=== PATIENT | male | born 1950 | race Hispanic/Latino ===

== ENCOUNTER 2018-06-13 08:55 | Inpatient (IN) | payer MEDICARE, OTHER, SELFPAY ==
[~2018-06-13] VITALS: Ht 170.2 cm; Wt 81.2 kg
[2018-06-13] MEDS ORDERED: oxyCODONE HCL/Acetaminophen 5/325mg ORAL ONE (09:00)
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
[2018-06-13 09:07] VITALS: BP 162/92
--- NOTE | 2018-06-13 09:08 | NUR ---
ED Nurse Note: XRAY AT BEDSIDE.
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
--- NOTE | 2018-06-13 09:20 | NUR ---
ED Nurse Note: [employer] AT BEDSIDE.
--- NOTE | 2018-06-13 09:45 | NUR ---
ED Nurse Note: DR BARNHART AT BEDSIDE FOR ANKLE REDUCTION. PT TOLERATED WELL.
[2018-06-13] MEDS ORDERED: Tetanus/Diptheria/Pertussis IM ONE (10:00)
--- NOTE | 2018-06-13 10:05 | NUR ---
ED Nurse Note: XRAY AT BEDSIDE.
--- NOTE | 2018-06-13 10:59 | Diagnostic Imaging Report ---
Indication: Ankle pain, post reduction Technique: 2 views of the right ankle Comparison: One hour earlier Findings: Overlying plaster splint obscures bony detail. Interim closed reduction of previously demonstrated ankle fracture/subluxation. There is improved anatomic alignment, still some lateral subluxation of the talus and slight angulation of the distal fibular fracture. Impression: Interim closed reduction and splinting of previously demonstrated right ankle/subluxation, with improved anatomic alignment, as described
--- NOTE | 2018-06-13 11:00 | NUR ---
ED Nurse Note: XRAY AT BEDSIDE.
--- NOTE | 2018-06-13 11:15 | NUR ---
ED Nurse Note: BLOOD DRAWN AND SENT TO LAB.
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
[2018-06-13 11:36] LABS: ANION GAP 7 mmol/L (5-15); BLOOD UREA NITROGEN 13 mg/dL (7-18); CALCIUM 8.4 MG/DL (8.5-10.1); CARBON DIOXIDE 31 MMOL/L (21-32); CHLORIDE 101 MMOL/L (98-107); POTASSIUM 4.5 MMOL/L (3.5-5.1); SODIUM 139 MMOL/L (136-145)
[2018-06-13 11:38] LABS: BASOPHILS % (AUTO) 0.9 % (0.0-2.0); EOSINOPHILS % (AUTO) 1.7 % (0.0-3.0); HEMATOCRIT 40.9 % (42.0-52.0); HEMOGLOBIN 13.1 G/DL (14.2-18.0); LYMPHOCYTES % (AUTO) 20.9 % (20.0-45.0); MEAN CORPUSCULAR VOLUME 85 FL (80-99); NEUTROPHILS % (AUTO) 70.5 % (45.0-75.0); PLATELET COUNT 177 K/UL (150-450); RED BLOOD COUNT 4.84 M/UL (4.70-6.10); RED CELL DISTRIBUTION WIDTH 13.5 % (11.6-14.8)
[2018-06-13 11:40] LABS: ALANINE AMINOTRANSFERASE 21 U/L (12-78); ALBUMIN 3.6 G/DL (3.4-5.0); ALBUMIN/GLOBULIN RATIO 1.1 (1.0-2.7); ALKALINE PHOSPHATASE 92 U/L (46-116); ASPARTATE AMINO TRANSFERASE 16 U/L (15-37); BILIRUBIN,TOTAL 0.4 MG/DL (0.2-1.0)
--- NOTE | 2018-06-13 11:52 | NUR ---
ED Nurse Note: [facility] CALLED FOR PT TRANSFER. RN ON BREAK. WILL CALL BACK IN 15 MINUTES.
[2018-06-13 11:59] LABS: INR 1.1 (0.9-1.1)
--- NOTE | 2018-06-13 12:00 | NUR ---
ED Nurse Note: RN STILL NOT READY. WILL CALL BACK IN 5 MINUTES.
--- NOTE | 2018-06-13 12:10 | Diagnostic Imaging Report ---
Indication: Cough Technique: One view of the chest Comparison: none Findings: Heart is enlarged. Lungs and pleural spaces are clear. Impression: Cardiomegaly. No acute process
[2018-06-13] MEDS ORDERED: UNOBMED (12:11)
--- NOTE | 2018-06-13 12:11 | NUR ---
ED Nurse Note: [facility] CALLED FOR PT TRANSFER. REPORT GIVEN TO CARLYN RUBIN. PT TAKEN UP TO [facility] VIA GURNEY WITH ALL BELONGINGS ACCOMPANIED BY EMT. VSS.
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
--- NOTE | 2018-06-13 12:35 | NUR ---
RADIOLOGY DEPT., CHEST , RIGHT FOOT AND ANKLE X-RAYS COMPLETED ON ADMIT FROM ER.-P.DYE
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
[2018-06-13] MEDS ORDERED: Morphine Sulfate 4mg/ml Inj (IV USE ONLY) IVP PRN (15:00)
--- NOTE | 2018-06-13 15:15 | History & Physical ---
History and Physical History & Physicial HP dictated # [id number] Adriano Rodrigez MD Jun 13, 2018 15:15
[2018-06-13 16:00] VITALS: BP 162/98
[2018-06-13] MEDS: NovoLOG Insulin Flexpen SUBQ SCH ×2 (16:13→21:11)
[2018-06-13] MEDS: Heparin 5000 units/ml inj SUBQ SCH ×2 (16:15→21:10)
[2018-06-13] MEDS ORDERED: METFORMIN HCL500 M1 ORAL (18:18)
[2018-06-13] MEDS ORDERED: ARTIFICIAL TEAR15 ML BOTH EYES (18:18)
[2018-06-13] MEDS ORDERED: ATENOLOL50 MG ORAL (18:18)
[2018-06-13] MEDS ORDERED: LIPITOR10 MG ORAL (18:18)
[2018-06-13] MEDS ORDERED: LISINOPRIL5 MG ORAL (18:18)
--- NOTE | 2018-06-13 19:12 | NUR ---
HAND-OFF: Report given to CARLYN Piedra.
--- NOTE | 2018-06-13 19:26 | NUR ---
NURSE NOTES: Pt is awake, alert and oriented x4. Able to verbalize needs. Breathing regular and unlabored on room air. Denies current ankle pain at this time. Spoke with physician who said to have pt elevate r leg/ankle above the level of the heart. IV intact, patent and flushes well, right AC 20g. Bed is locked in lowest position, side rails x2. Asked pt to call for assistanc e and call light within reach. Multiple family members at bedside with patient. Will continue to monitor needs and pain.
[2018-06-13 20:00] VITALS: BP 134/79
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
--- NOTE | 2018-06-13 20:06 | Cardiology Progress Note ---
Assessment/Plan Assessment/Plan no sign or sx oa cs of chf dm htn need echo adn ekg if neg will be at acceptable risk fo ankle surgery [id number] Objective Last 24 Hour Vital Signs Date Time Temp Pulse Resp B/P (MAP) Pulse Ox O2 Delivery O2 Flow Rate FiO2 06/13/18 17:35 162/98 06/13/18 16:00 98.6 83 20 162/98 (119) 95 06/13/18 13:00 Room Air 06/13/18 12:11 98.5 62 14 142/80 99 Room Air 06/13/18 09:07 98.8 67 15 162/92 98 Room Air 06/13/18 08:56 99.0 72 14 177/100 99 Room Air Laboratory Tests Test 06/13/18 11:13 White Blood Count 5.0 K/UL (4.8-10.8) Red Blood Count 4.84 M/UL (4.70-6.10) Hemoglobin 13.1 G/DL (14.2-18.0) L Hematocrit 40.9 % (42.0-52.0) L Mean Corpuscular Volume 85 FL (80-99) Mean Corpuscular Hemoglobin 27.1 PG (27.0-31.0) Mean Corpuscular Hemoglobin Concent 32.0 G/DL (32.0-36.0) Red Cell Distribution Width 13.5 % (11.6-14.8) Platelet Count 177 K/UL (150-450) Mean Platelet Volume 6.9 FL (6.5-10.1) Neutrophils (%) (Auto) 70.5 % (45.0-75.0) Lymphocytes (%) (Auto) 20.9 % (20.0-45.0) Monocytes (%) (Auto) 6.0 % (1.0-10.0) Eosinophils (%) (Auto) 1.7 % (0.0-3.0) Basophils (%) (Auto) 0.9 % (0.0-2.0) Prothrombin Time 11.7 SEC (9.30-11.50) H Prothromb Time International Ratio 1.1 (0.9-1.1) Activated Partial Thromboplast Time 27 SEC (23-33) Sodium Level 139 MMOL/L (136-145) Potassium Level 4.5 MMOL/L (3.5-5.1) Chloride Level 101 MMOL/L (98-107) Carbon Dioxide Level 31 MMOL/L (21-32) Anion Gap 7 mmol/L (5-15) Blood Urea Nitrogen 13 mg/dL (7-18) Creatinine 1.0 MG/DL (0.55-1.30) Estimat Glomerular Filtration Rate > 60 mL/min (>60) Glucose Level 139 MG/DL (74-106) H Calcium Level 8.4 MG/DL (8.5-10.1) L Total Bilirubin 0.4 MG/DL (0.2-1.0) Aspartate Amino Transf (AST/SGOT) 16 U/L (15-37) Alanine Aminotransferase (ALT/SGPT) 21 U/L (12-78) Alkaline Phosphatase 92 U/L (46-116) Total Protein 6.8 G/DL (6.4-8.2) Albumin 3.6 G/DL (3.4-5.0) Globulin 3.2 g/dL Albumin/Globulin Ratio 1.1 (1.0-2.7) Vlad Neri MD Jun 13, 2018 20:06
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
[2018-06-13] MEDS: Morphine Sulfate 2mg/ml Inj(IV/IM USE ONLY) IVP PRN (23:44)
[2018-06-14] VITALS (7 sets, daily range): BP systolic 122–156; BP diastolic 70–98
--- NOTE | 2018-06-14 | Consultation ---
DATE OF CONSULTATION: 06/13/2018 HISTORY OF PRESENT ILLNESS: This is a pleasant 68-year-old gentleman who is a had a deformity of the right ankle. He presented to the ER where he was diagnosed with ankle fracture. Orthopedic consultation obtained for further care and recommendation. PAST MEDICAL HISTORY: Hypertension, diabetes. PAST SURGICAL HISTORY: Per intake chart. MEDICATION: Per intake chart. ALLERGIES: None. SOCIAL HISTORY: The patient does not smoke or drink. FAMILY HISTORY: Noncontributory. PHYSICAL EXAMINATION: The patient is in moderate discomfort. He is resting comfortably in bed. VITAL SIGNS: Afebrile with stable vital signs. EXTREMITIES: Right ankle is in a posterior splint. DIAGNOSTIC DATA: Imaging study show pronation external rotation fracture. There is disruption of the syndesmosis. ASSESSMENT: Right ankle fracture dislocation syndesmosis. At this point, what I recommend is postreduction films seem adequate. At this point, given the nature of the injury, I would recommend strict elevation above heart for the next 48 hours. Hopefully the swelling continues to improve at which point we will proceed with surgery on Saturday if he is medically optimized. Risks, limitations, expectations, complications of procedure were discussed in detail. All questions addressed. Oliver Juarez M.D. DR: Richard JOB#: [id number] CC:
[2018-06-14] MEDS: NovoLOG Insulin Flexpen SUBQ SCH ×4 (05:44→20:08)
--- NOTE | 2018-06-14 07:43 | NUR ---
HAND-OFF: Report given to CARLYN Jacobs.
--- NOTE | 2018-06-14 07:50 | NUR ---
NURSE NOTES: Received patient on bed, asleep. IV site intact and patent. Bed in low and locked position, call light in reach. Foot elevated. No signs of respiratory distress or pain. Room board updated, will continue to monitor.
[2018-06-14 08:01] LABS: ALANINE AMINOTRANSFERASE 22 U/L (12-78); ALBUMIN 3.4 G/DL (3.4-5.0); ALKALINE PHOSPHATASE 92 U/L (46-116); ANION GAP 9 mmol/L (5-15); ASPARTATE AMINO TRANSFERASE 16 U/L (15-37); BILIRUBIN,TOTAL 0.6 MG/DL (0.2-1.0); BLOOD UREA NITROGEN 15 mg/dL (7-18); CALCIUM 8.2 MG/DL (8.5-10.1); CARBON DIOXIDE 29 MMOL/L (21-32); CHLORIDE 100 MMOL/L (98-107); CHOLESTEROL 108 MG/DL (< 200); CREATININE 0.9 MG/DL (0.55-1.30); HDL CHOLESTEROL 30 MG/DL (40-60); POTASSIUM 4.1 MMOL/L (3.5-5.1); SODIUM 138 MMOL/L (136-145); TRIGLYCERIDES 129 MG/DL (30-150)
[2018-06-14] MEDS ORDERED: Lisinopril 2.5mg tab ORAL SCH ×2 (09:00→18:00)
[2018-06-14] MEDS: Artificial Tears 1.4% Op Soln BOTH EYES SCH ×3 (10:06→17:50)
[2018-06-14] MEDS: metFORMIN 500mg tab ORAL SCH ×2 (10:06→17:50)
[2018-06-14] MEDS: Heparin 5000 units/ml inj SUBQ SCH ×2 (10:08→20:09)
--- NOTE | 2018-06-14 11:53 | NUR ---
NURSE NOTES: Patient refused bedside glucose check. Risk versus benefits explained. Patient refused.
[2018-06-14] MEDS: Morphine Sulfate 2mg/ml Inj(IV/IM USE ONLY) IVP PRN (15:49)
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
[2018-06-14] MEDS: Lisinopril 20mg tab ORAL SCH (17:50)
--- NOTE | 2018-06-14 18:30 | General Progress Note ---
Assessment/Plan Problem List: (1) DM (diabetes mellitus) ICD Codes: E11.9 - Type 2 diabetes mellitus without complications SNOMED: 44636710 (2) HTN (hypertension) ICD Codes: I10 - Essential (primary) hypertension SNOMED: 42388704 (3) Closed right ankle fracture ICD Codes: S82.891A - Other fracture of right lower leg, initial encounter for closed fracture SNOMED: 21361859 Assessment/Plan Increase Lisinopril Add Januvia Surgery on Saturday Discussed with pt and family Subjective Allergies: Coded Allergies: No Known Allergies (Unverified , 06/13/18) Subjective feels ok Objective Last 24 Hour Vital Signs Date Time Temp Pulse Resp B/P (MAP) Pulse Ox O2 Delivery O2 Flow Rate FiO2 06/14/18 17:50 122/70 06/14/18 16:00 98.1 64 20 122/70 (87) 96 06/14/18 12:00 99.1 66 19 156/95 (115) 95 06/14/18 10:06 144/88 06/14/18 10:06 78 144/88 06/14/18 09:00 Room Air 06/14/18 08:00 97.2 78 17 144/88 (106) 96 06/14/18 04:00 97.9 62 17 138/98 (111) 93 06/14/18 00:00 97.7 61 19 156/92 (113) 95 06/13/18 21:00 Room Air 06/13/18 20:00 98.4 69 20 134/79 (97) 95 Intake and Output 06/13/18 06/14/18 19:00 07:00 Intake Total 720 ml Output Total 600 ml 975 ml Balance 120 ml -975 ml Intake Oral 720 ml Output Urine Total 600 ml 975 ml # Voids 1 Laboratory Tests 06/14/18 06:47: Sodium Level 138, Potassium Level 4.1, Chloride Level 100, Carbon Dioxide Level 29, Anion Gap 9, Blood Urea Nitrogen 15, Creatinine 0.9, Estimat Glomerular Filtration Rate > 60, Glucose Level 109H, Hemoglobin A1c 6.8H, Calcium Level 8.2L, Total Bilirubin 0.6, Aspartate Amino Transf (AST/SGOT) 16, Alanine Aminotransferase (ALT/SGPT) 22, Alkaline Phosphatase 92, Total Protein 6.7, Albumin 3.4, Globulin 3.3, Albumin/Globulin Ratio 1.0, Triglycerides Level 129, Cholesterol Level 108, LDL Cholesterol 62, HDL Cholesterol 30L, Cholesterol/HDL Ratio 3.6 Height (Feet): 5 Height (Inches): 7.00 Weight (Pounds): 180 Cardiovascular: normal rate Respiratory/Chest: lungs clear Edema: no edema noted Generalized Adriano Rodrigez MD Jun 14, 2018 18:29
--- NOTE | 2018-06-14 19:29 | NUR ---
HAND-OFF: Report given to CARLYN Mcnally.
--- NOTE | 2018-06-14 19:30 | NUR ---
NURSE NOTES: Patient received in bed, awake and alert. Right lower extremity with CHRISTINE bandage, elevated on 2 pillows. IV is intact. Seen by Dr. Juarez at bedside. Verified with Dr. Juarez regarding NPO status on Saturday after breakfast and hold heparin startng saturday night. Call light and urinal within reach for patient. Will continue POC.
--- NOTE | 2018-06-15 03:00 | Progress Note ---
DATE: 06/14/2018 SUBJECTIVE: The patient had no issues overnight, doing relatively well. OBJECTIVE: Examination shows the splint in place. The patient's ankle was elevated. Neurovascular is normal. ASSESSMENT: Ankle fracture dislocation. DISCUSSION: At this point, there is moderate swelling. What I would like to do is continue elevation and then proceed with surgery potentially Saturday. Risks, limitations, expectations, and complications of the procedure discussed in detail. All questions were addressed. We are going to keep continued elevation and ice and pain management in the meantime. Oliver Juarez M.D. DR: SINDY JOB#: [id number] CC:
[2018-06-15 03:41] VITALS: BP 149/91
[2018-06-15] MEDS: sitaGLIPtin 50mg tab ORAL SCH (06:11)
[2018-06-15] MEDS: NovoLOG Insulin Flexpen SUBQ SCH ×4 (06:16→20:23)
--- NOTE | 2018-06-15 07:18 | NUR ---
HAND-OFF: Report given to Reynaldo ALCOCER.
--- NOTE | 2018-06-15 07:55 | NUR ---
NURSE NOTES: Received patient on bed, awake. IV access intact and patent. Right ankle in sherlyn wrap and elevated. Bed in low an dlocked position, call light in reach. No signs of respiratory distress or pain. Room board updated, will continue to monitor.
[2018-06-15 08:00] VITALS: BP 134/87
[2018-06-15] MEDS: Artificial Tears 1.4% Op Soln BOTH EYES SCH ×3 (09:39→17:08)
[2018-06-15] MEDS: metFORMIN 500mg tab ORAL SCH ×2 (09:40→17:07)
[2018-06-15] MEDS: Lisinopril 20mg tab ORAL SCH ×2 (09:40→17:08)
[2018-06-15] MEDS: Heparin 5000 units/ml inj SUBQ SCH ×2 (09:41→20:18)
[2018-06-15 12:00] VITALS: BP 146/89
--- NOTE | 2018-06-15 15:13 | Cardiology Progress Note ---
Assessment/Plan Status: stable, progressing Status Narrative s/p R ankle fracture - preop HTN HLD type II DM Assessment/Plan Pt w/ no cardiac c/o. EKG normal. ECHO shows normal LV systolic function and no significant valve regurgitation or stenosis. BP borderline - lisinopril has been increased. Acceptable cv risk for planned orthopedic surgery. Subjective ROS Limited/Unobtainable: No Subjective Cardiology for Dr. Neri No c/o chest pain, dyspnea or palpitations Objective Last 24 Hour Vital Signs Date Time Temp Pulse Resp B/P (MAP) Pulse Ox O2 Delivery O2 Flow Rate FiO2 06/15/18 12:00 97.1 65 16 146/89 (108) 95 06/15/18 09:40 134/87 06/15/18 09:40 95 134/87 06/15/18 09:00 Room Air 06/15/18 08:00 98.7 95 18 134/87 (103) 94 06/15/18 03:41 97.7 61 17 149/91 (110) 92 06/14/18 23:52 97.8 69 18 140/88 (105) 96 06/14/18 21:00 Room Air 06/14/18 19:53 98.1 68 18 132/78 (96) 94 06/14/18 17:50 122/70 06/14/18 16:00 98.1 64 20 122/70 (87) 96 General Appearance: WD/WN, no apparent distress, alert EENT: PERRL/EOMI Neck: no JVD Rhythm: NSR Cardiovascular: normal rate, regular rhythm, no gallop/murmur Respiratory/Chest: lungs clear, other - clear anteriorly Abdomen: non tender, soft Extremities: other - R ankle cast Intake and Output 06/14/18 06/15/18 18:59 06:59 Intake Total 600 ml Output Total 600 ml 775 ml Balance 0 ml -775 ml Intake Oral 600 ml Output Urine Total 600 ml 775 ml Kelsea Taylor MD Jun 15, 2018 15:13
[2018-06-15 16:00] VITALS: BP 158/98
--- NOTE | 2018-06-15 16:07 | General Progress Note ---
Assessment/Plan Problem List: (1) DM (diabetes mellitus) ICD Codes: E11.9 - Type 2 diabetes mellitus without complications SNOMED: 66061248 (2) HTN (hypertension) ICD Codes: I10 - Essential (primary) hypertension SNOMED: 49511371 (3) Closed right ankle fracture ICD Codes: S82.891A - Other fracture of right lower leg, initial encounter for closed fracture SNOMED: 52120040 Assessment/Plan Increase Lisinopril cont Januvia Surgery on Saturday Discussed with pt and family Subjective Allergies: Coded Allergies: No Known Allergies (Unverified , 06/13/18) Subjective feels ok Objective Last 24 Hour Vital Signs Date Time Temp Pulse Resp B/P (MAP) Pulse Ox O2 Delivery O2 Flow Rate FiO2 06/15/18 12:00 97.1 65 16 146/89 (108) 95 06/15/18 09:40 134/87 06/15/18 09:40 95 134/87 06/15/18 09:00 Room Air 06/15/18 08:00 98.7 95 18 134/87 (103) 94 06/15/18 03:41 97.7 61 17 149/91 (110) 92 06/14/18 23:52 97.8 69 18 140/88 (105) 96 06/14/18 21:00 Room Air 06/14/18 19:53 98.1 68 18 132/78 (96) 94 06/14/18 17:50 122/70 Intake and Output 06/14/18 06/15/18 18:59 06:59 Intake Total 600 ml Output Total 600 ml 775 ml Balance 0 ml -775 ml Intake Oral 600 ml Output Urine Total 600 ml 775 ml Height (Feet): 5 Height (Inches): 7.00 Weight (Pounds): 180 Cardiovascular: regular rhythm Respiratory/Chest: lungs clear Abdomen: non tender Edema: no edema noted Generalized Adriano Rodrigez MD Jun 15, 2018 16:07
--- NOTE | 2018-06-15 19:36 | NUR ---
HAND-OFF: Report given to CARLYN Mcnally.
[2018-06-15 20:00] VITALS: BP 141/84
--- NOTE | 2018-06-15 20:00 | NUR ---
NURSE NOTES: Patient received in bed, awake and alert, Family is at bedside. IV already out, new IV access obtained. C/o mild pain at this time. R leg elevated on two pillows. aware of surgery tomorrow and NPO status after breakfast. Urinal and call light within reach. Will continue to monitor.
[2018-06-15] MEDS: Morphine Sulfate 2mg/ml Inj(IV/IM USE ONLY) IVP PRN (20:51)
--- NOTE | 2018-06-15 22:15 | Progress Note ---
DATE: 06/15/2018 SUBJECTIVE: The patient had no issues overnight. He has pain, which is well controlled on oral medications. OBJECTIVE: Examination shows right foot is in a coaptation splint. It is elevated. The patient on his toes. Neurovascular is normal. ASSESSMENT: Right ankle fracture dislocation. DISCUSSION: At this point, he elevated the extremity for approximately 48 hours. We are going to proceed with surgery tomorrow. Risks, limitations, expectations, and complications of procedure were discussed in detail. He will be NPO after surgery tomorrow late afternoon. Oliver Juarez M.D. DR: Mirela JOB#: [id number] CC: SRIDHAR
[2018-06-16] VITALS (10 sets, daily range): BP systolic 113–153; BP diastolic 62–94
[2018-06-16] MEDS: sitaGLIPtin 50mg tab ORAL SCH (05:33)
[2018-06-16] MEDS: NovoLOG Insulin Flexpen SUBQ SCH ×4 (06:07→23:40)
--- NOTE | 2018-06-16 07:18 | NUR ---
HAND-OFF: Report given to Cici ALCOCER.
--- NOTE | 2018-06-16 07:20 | NUR ---
NURSE NOTES:RECEIVED REPORT FR.XYRECE ALCOCER.PATIENT EATING BREAKFAST,A/OX4,ROOM AIR,IV SITE PATENT ON RFA.RIGHT ANKLE WITH SPLINT ON,CAN WIGGLE TOES,ELEVATED ON PILLOW.NPO AFTER BREAKFAST,SCHEDULE FOR SURGERY AT 5PM UNDER .CONSENTED FOR PROCEDURE AND BLOOD TRANSFUSION.PLAN OF CARE DISCUSSED VERBALIZED UNDERSTANDING.NO C/O PAIN.
[2018-06-16] MEDS: metFORMIN 500mg tab ORAL SCH ×2 (08:24→16:48)
[2018-06-16] MEDS: Lisinopril 20mg tab ORAL SCH ×2 (08:25→17:26)
[2018-06-16] MEDS: Heparin 5000 units/ml inj SUBQ SCH ×2 (08:26→21:00)
[2018-06-16] MEDS: Artificial Tears 1.4% Op Soln BOTH EYES SCH ×3 (08:30→17:26)
--- NOTE | 2018-06-16 09:11 | NUR ---
NURSE NOTES:SPOKE TO DR. TIPTON RE:PATIENT NPO AND SURGERY AT 5 PM AND NEEDS IV FLUID,MD ORDERED D5.45NS INSPITE OF TELLING HIM THAT HE IS DIABETIC.MD STATED"IT DOESNT MATTER"
[2018-06-16] MEDS: D5 1/2NS 1,000 ML IV SCH ×3 (10:02→23:27)
--- NOTE | 2018-06-16 13:14 | General Progress Note ---
Assessment/Plan Problem List: (1) DM (diabetes mellitus) Assessment & Plan: Blood sugar is better controlled ICD Codes: E11.9 - Type 2 diabetes mellitus without complications SNOMED: 15883349 (2) HTN (hypertension) Assessment & Plan: Blood pressure still slightly high ICD Codes: I10 - Essential (primary) hypertension SNOMED: 42597460 (3) Closed right ankle fracture ICD Codes: S82.891A - Other fracture of right lower leg, initial encounter for closed fracture SNOMED: 53878664 Assessment/Plan Continue lisinopril cont Januvia Ankle surgery today Discussed with pt and family Watch blood sugar and blood pressure Subjective Allergies: Coded Allergies: No Known Allergies (Unverified , 06/13/18) Subjective feels ok Objective Last 24 Hour Vital Signs Date Time Temp Pulse Resp B/P (MAP) Pulse Ox O2 Delivery O2 Flow Rate FiO2 06/16/18 12:00 98.1 61 18 153/84 (107) 94 06/16/18 08:25 144/89 06/16/18 08:25 80 144/89 06/16/18 08:00 98.7 80 17 144/89 (107) 94 06/16/18 07:39 Room Air 06/16/18 04:00 97.4 69 18 149/94 (112) 94 06/16/18 00:05 98.6 65 18 135/83 (100) 95 06/15/18 21:00 Room Air 06/15/18 20:00 98.5 74 18 141/84 (103) 98 06/15/18 17:08 158/95 06/15/18 16:00 99.4 63 18 158/98 (118) 97 Intake and Output 06/15/18 06/16/18 19:00 07:00 Intake Total 800 ml Output Total 600 ml Balance 800 ml -600 ml Other 800 ml Output Urine Total 600 ml Height (Feet): 5 Height (Inches): 7.00 Weight (Pounds): 180 Cardiovascular: normal rate Respiratory/Chest: lungs clear Edema: no edema noted Generalized Adriano Rodrigez MD Jun 16, 2018 13:14
--- NOTE | 2018-06-16 16:25 | NUR ---
HAND-OFF: Report given to NAM ALCOCER.RE:CONTINUITY OF CARE.PATIENT STABLE AWAITING FOR SURGERY ASSOCIATE PROFESSOR OF GEOLOGY..
[2018-06-16] MEDS ORDERED: NeoSporin Gu Irrig 1ml Amp IRRIG ONE (16:38)
[2018-06-16] MEDS ORDERED: Bacitracin 50000 Units Vial ONE (16:38)
--- NOTE | 2018-06-16 16:52 | NUR ---
nurse notes received patient resting comfortably in bed, no sign of distress, on IVF patent and infusing well,on NPO status for procedure, right ankle with splint dressing clean dry and intact, elevated on pillow, , kept clean dry and comfortable in bed tabitha gómez
[2018-06-16] MEDS: Morphine Sulfate 2mg/ml Inj(IV/IM USE ONLY) IVP PRN (18:31)
[2018-06-16] MEDS ORDERED: NS Irrig 1000ml ONE (19:00)
[2018-06-16] MEDS ORDERED: Sterile Water Irrig 1000ml IRRIG ONE (19:00)
[2018-06-16] MEDS ORDERED: LR 1000ml ONE (19:00)
--- NOTE | 2018-06-16 19:00 | NUR ---
HAND-OFF: Report given to CARLYN Padilla accordingly carlyn gómez.
--- NOTE | 2018-06-16 19:03 | Cardiology Report ---
APPROVED REPORT EXAM: Two-dimensional and M-mode echocardiogram with Doppler and color Doppler. INDICATION Hypertension M-Mode DIMENSIONS IVSd1.3 (0.7-1.1cm)Left Atrium (MM)3.8 (1.6-4.0cm) LVDd5.1 (3.5-5.6cm)Aortic Root3.2 (2.0-3.7cm) PWd1.2 (0.7-1.1cm)Aortic Cusp Exc.1.7 (1.5-2.0cm) LVDs2.5 (2.5-4.0cm) PWs2.2 cm Normal left ventricular chamber size, systolic function and wall motion. Left ventricular ejection fraction estimated to be 60-65 %. Mild left ventricular hypertrophy. Anterior Echo-free space, may be due to pericardial fat or effusion. All other cardiac chamber sizes are within normal limits. Focal aortic valve sclerosis with adequate cusp excursion. Thickened mitral valve leaflets with normal excursion. Mild mitral annulus and aortic root calcification. Pulmonic valve not visualized. Normal tricuspid valve structure. IVC is normal in size with physiological collapse. A color flow and spectral Doppler study was performed and revealed: No aortic insufficiency. Mild mitral regurgitation. Mitral diastolic velocities suggest mild left ventricular diastolic dysfunction (Grade I). Trace tricuspid regurgitation. Tricuspid systolic velocities suggests peak right ventricular systolic pressure of 13 mmHg.
[2018-06-16] MEDS ORDERED: Morphine Sulfate PF 10 ML ONE (19:05)
[2018-06-16] MEDS ORDERED: Bupivacaine 0.5% Inj 30 ml vial INJ ONE (19:05)
[2018-06-16] MEDS ORDERED: EPINEPHrine 1mg/1ml Amp ONE (19:09)
[2018-06-16] MEDS ORDERED: Lidocaine 1% MPF 10mg/ml 5ml ONE (19:13)
[2018-06-16] MEDS ORDERED: Propofol 200mg/20ml IV ONE (19:13)
--- NOTE | 2018-06-16 19:15 | Operative Note - PDOC ---
Operative Note Operative Note Pre-op Diagnosis: right ankle fracture dislocation Procedure: see op report Post-op Diagnosis: same as pre-op plus Operative Findings: consistent w/pre-op dx studies Anesthesia: regional Specimen: none Complications: none Condition: stable Estimated Blood Loss: none Implant(s) used?: Yes Oliver Juarez MD Jun 16, 2018 19:15
--- NOTE | 2018-06-16 19:15 | Pre-Procedure Note/Attestation ---
Pre-Procedure Note/Attestation Complete Prior to Procedure Planned Procedure: right Procedure Narrative: ankle orif Indications for Procedure Pre-Operative Diagnosis: right ankle fracture dislocation Attestation I attest that I discussed the nature of the procedure; its benefits; risks and complications; and alternatives (and the risks and benefits of such alternatives ), prior to the procedure, with the patient (or the patient's legal customer field representative). I attest that, if there was a reasonable possibility of needing a blood transfusion, the patient (or the patient's legal customer field representative) was given the [facility] standardized written summary, pursuant to the Andr[place] Vannessa Blood Safety Act ([place] Health and Safety Code # 1645, as amended). I attest that I re-evaluated the patient just prior to the surgery and that there has been no change in the patient's H&P, except as documented below: Oliver Juarez MD Jun 16, 2018 19:15
[2018-06-16] MEDS ORDERED: LR 1000ml 1,000 ML IVLG SCH (19:17)
--- NOTE | 2018-06-16 19:21 | Anethesia Preoperative Eval ---
Anesthesia Pre-op PMH/ROS General Date of Evaluation: Jun 16, 2018 Time of Evaluation: 19:09 Anesthesiologist: Carlos ASA Score: ASA 3 - Emergency Mallampati Score Class I : Soft palate, uvula, fauces, pillars visible Class II: Soft palate, uvula, fauces visible Class III: Soft palate, base of uvula visible Class IV: Only hard plate visible Mallampati Classification: Class II Surgeon: Larry Diagnosis: R Ankle Fx Surgical Procedure: ORIF R Ankle Anesthesia History: none Family History: no anesthesia problems Allergies: Coded Allergies: No Known Allergies (Unverified , 06/13/18) Medications: see eMAR Patient NPO?: Yes NPO Date: Jun 16, 2018 NPO Time: 0900 Past Medical History Cardiovascular: Reports: HTN, other - HL Endocrine: Reports: DM Anesthesia Pre-op Phys. Exam Physician Exam Last Vital Signs Date Time Temp Pulse Resp B/P (MAP) Pulse Ox O2 Delivery O2 Flow Rate FiO2 06/16/18 17:26 146/85 06/16/18 16:49 Room Air 06/16/18 16:30 98.3 60 18 95 Constitutional: NAD Neurologic: CN 2-12 intact Cardiovascular: RRR Respiratory: CTA Gastrointestinal: S/NT/ND Airway Exam Mallampati Score: Class II MO: limited ROM: limited Teeth: missing, intact Anesthesia Pre-op A/P Risk Assessment & Plan Assessment: ASA 3E Plan: Spinal, GA Status Change Before Surgery: No Pre-Antibiotics Dru Gram Ancef IV Given Within 1 Hr of Incision: Yes Time Given: 19:31 Dennis Gonzalez MD Jun 16, 2018 19:21
--- NOTE | 2018-06-16 19:25 | NUR ---
NURSE NOTES: Patient off the floor for ORIF
--- NOTE | 2018-06-16 19:27 | Cardiology Report ---
APPROVED REPORT EKG Measurement Heart [id number] TN 170P63 [id number] Normal sinus rhythm Normal ECG
[2018-06-16] MEDS ORDERED: LORazepam Inj 2mg/ml 1ml IV PRN (19:30)
[2018-06-16] MEDS ORDERED: DiphenhydrAMINE 50mg/ml Inj IVP PRN (19:30)
[2018-06-16] MEDS ORDERED: HYDROcodone/Acetamin 7.5/325 tab ORAL PRN (19:30)
[2018-06-16] MEDS ORDERED: Hydromorphone 0.5mg/0.5ml inj IVP PRN (19:30)
[2018-06-16] MEDS ORDERED: Atropine Sulfate 0.4mg/ml inj IVP PRN (19:30)
[2018-06-16] MEDS ORDERED: Meperidine 50mg/ml Inj(FOR RIGORS ONLY) IVP PRN (19:30)
[2018-06-16] MEDS ORDERED: Metoclopramide 10mg/2ml Inj IVP PRN (19:30)
[2018-06-16] MEDS ORDERED: Midazolam 2mg/2ml Inj IVP PRN (19:30)
[2018-06-16] MEDS ORDERED: fentaNYL 100 mcg/2 mL IV PRN (19:30)
[2018-06-16] MEDS ORDERED: HYDROcodone/Acetamin 5/325 tab ORAL PRN (19:30)
[2018-06-16] MEDS ORDERED: oxyCODONE HCL/Acetaminophen 5/325mg ORAL PRN (19:30)
--- NOTE | 2018-06-16 19:30 | Cardiology Report ---
APPROVED REPORT EKG Measurement Heart [id number] PA 180P29 [id number] Normal sinus rhythm Minimal voltage criteria for LVH, may be normal variant Nonspecific ST abnormality Abnormal ECG
--- NOTE | 2018-06-16 20:03 | Immediate Post-Op Evaluation ---
Immediate Post-Op Evalulation Immediate Post-Op Evalulation Procedure: ORIF R Ankle Date of Evaluation: Jun 16, 2018 Time of Evaluation: 21:35 IV Fluids: 800 LR Blood Products: 0 Estimated Blood Loss: 25 Blood Pressure Systolic: 116 Blood Pressure Diastolic: 71 Pulse Rate: 59 Respiratory Rate: 16 O2 Sat by Pulse Oximetry: 98 Temperature (Fahrenheit): 98 Pain Score (1-10): 1 Nausea: No Vomiting: No Complications 0 Patient Status: awake, reacts, patent, none Hydration Status: adequate Dru Gram Ancef IV Time Given: 19:31 Dennis Gonzalez MD Jun 16, 2018 20:03
[2018-06-16] MEDS ORDERED: Hydromorphone 0.5mg/0.5ml inj SUBQ PRN (21:00)
[2018-06-16] MEDS: Ciprofloxacin 500mg tab ORAL SCH (21:00)
[2018-06-16] MEDS: oxyCONTIN 20mg tab ORAL SCH (21:00)
--- NOTE | 2018-06-16 22:30 | NUR ---
NURSE NOTES: Pt is transferred from OR in stable condition, vitals stable. Report received from [facility] [place] [employer] MARKETING DIRECTOR. Pt had right ankle ORIF, dressing dry and intact.Right ankle elevated with ice pack in place. Pt's on 2L nasal canula. Pt is instructed to deep breathe , turn and cough. s/p spinal block.Diet is NPO with advanced as tolerated. Pt reports no pain. Cap refill on right foot is brisk. Pt is awake alert and verbal. Pt is Kyrgyz speaking, by bedside. Pt's belongings sheet verified and updated, pt's took majority of the items home. Pt is oriented to the unit. SCD's on the left leg. Bed low in position,side rails up and call light within reach. Pt will be monitored.
[2018-06-17] VITALS: BP 122/74
--- NOTE | 2018-06-17 00:25 | NUR ---
HAND-OFF: Report given to Tre crocker LVN.Pt is in bed, awake. No acute distress noted. Dressing dry and intact. Pt reports no pain Pt is able to eat Jello. by bedside.
--- NOTE | 2018-06-17 00:25 | NUR ---
NURSE NOTES:patient received from Doyle RTata. Patient Puerto R[place] speaking @ bedside. patient denies any pain right foot . NO S/S of distress noted . patient on o2 2L VIA n/c in place . patient instructed to deep breathe turn and cough, right ankle dressing C/D/I with ice pack in place. cap refill in right foot brisk . s/p spinal block patient scds in left leg only. call light within reach . bed in low position
[2018-06-17] MEDS: ceFAZolin sod 1 GM in D5W 55 ML IV SCH ×3 (02:03→17:26)
--- NOTE | 2018-06-17 02:45 | Operative Note - Dictated ---
DATE OF OPERATION: 06/16/2018 PREOPERATIVE DIAGNOSES: 1. Pronation external rotation, grade 4. 2. Ankle fracture dislocation with syndesmotic disruption. POSTOPERATIVE DIAGNOSES: 1. Pronation external rotation, grade 4. 2. Ankle fracture dislocation with syndesmotic disruption. 3. A 3 x 4 cm medial serous blister. PROCEDURE: 1. Open reduction and internal fixation of bimalleolar ankle fracture dislocation, right ankle. 2. Open right syndesmosis repair with syndesmotic suture fixation. 3. Debridement of a 3 x 4 cm serous blister. SURGEON: Oliver Juarez M.D. ANESTHESIA: Spinal. INDICATION FOR PROCEDURE: The patient is a pleasant 68-year-old gentleman who sustained a right ankle fracture dislocation indicative for operative fixation. Risks, limitations, expectations, and complications of the procedure were discussed in detail including continued pain, need for future surgery, risk of anesthesia, medical complications, DVT, PE, mortality risk, wound complications, need for hardware removal in the future, failure of the fixation, etc. All questions were addressed. DESCRIPTION OF PROCEDURE: After informed consent was obtained, the patient was brought to the operating room and placed under spinal anesthesia. The right leg was prepped and draped in a sterile manner. Leg was elevated, tourniquet was applied. At this point, the serous blister was incised and drained. Care was taken to maintain the skin and layer of protection. Once that was completed, lateral skin incision was then made. Blunt dissection in the lateral fibula was performed. The superficial peroneal was identified. The proximal incision dissected out. There was significant comminution at the fracture site and therefore a lag screw was not available. Therefore, using indirect methods, an Arthrex fibula plate was selected. The cortical screws were placed proximally and distally and reduction was confirmed. The fracture was slightly hyperextended distally and therefore the plate was repositioned and the fracture was then reduced again and placed in more anatomic position. Once adequate position was confirmed on AP and lateral imaging, additional four cortical locking screws were placed distally and 3 cortical screws placed proximally. At this point, the syndesmosis was removed and open syndesmosis repair using Arthrex TightRope was performed. External rotation drawer test was negative upon fixation. At this point, the lateral side was copiously irrigated and it was closed with 2-0 Vicryl, 3-0 Vicryl, and Monocryl with Steri-Strips. At this point, percutaneous screw fixation of medial malleolus was performed to 30 mm. Partially threaded cannulated screws were then placed and secured. Once that was done, AP and lateral imaging showed the mortise was well reduced. There was good stability with external rotation drawer test. At this point, Steri-Strips and posterior splint was applied. The patient was awoken and taken to recovery room with stable vital signs. ESTIMATED BLOOD LOSS: 25 mL. COMPLICATIONS: None. SPECIMENS: None. IMPLANTS: Include, 1. Arthrex ankle lateral fibula plate with multiple cortical locking screws. 2. Arthrex TightRope suture fixation. 3. Two 30 mm partially cannulated medial malleolar screws. Oliver Juarez M.D. DR: ROSA M JOB#: [id number] CC: SRIDHAR
[2018-06-17 04:00] VITALS: BP 109/73
[2018-06-17] MEDS: sitaGLIPtin 50mg tab ORAL SCH ×2 (06:32→18:16)
[2018-06-17] MEDS: NovoLOG Insulin Flexpen SUBQ SCH ×4 (06:34→21:30)
--- NOTE | 2018-06-17 07:38 | NUR ---
HAND-OFF: Report given to ZAIN Bass
--- NOTE | 2018-06-17 07:38 | NUR ---
NURSE NOTES: Received pt with stable condition. s/p (R)ankle ORIF. denies pain at this time. at bedside. IVF running. Tolerating well on po diet. will continue to monitor.
[2018-06-17 08:00] VITALS: BP 155/92
[2018-06-17] MEDS: Artificial Tears 1.4% Op Soln BOTH EYES SCH ×3 (08:32→17:26)
[2018-06-17] MEDS: metFORMIN 500mg tab ORAL SCH ×2 (08:33→17:26)
[2018-06-17] MEDS: Docusate 100mg cap ORAL SCH ×3 (08:33→17:26)
[2018-06-17] MEDS: Ciprofloxacin 500mg tab ORAL SCH ×2 (08:33→21:24)
[2018-06-17] MEDS: oxyCONTIN 20mg tab ORAL SCH (08:34)
[2018-06-17] MEDS: Lisinopril 20mg tab ORAL SCH ×2 (08:34→17:26)
[2018-06-17] MEDS: Heparin 5000 units/ml inj SUBQ SCH ×2 (08:41→21:00)
[2018-06-17] MEDS: celeBREX 200mg Cap **SURGERY PATIENTS ONLY ORAL SCH (08:42)
--- NOTE | 2018-06-17 08:46 | 48 Hour Post Anesthesia Eval ---
Post Anesthesia Evaluation Procedure: ORIF R Ankle Date of Evaluation: Jun 17, 2018 Airway: patent Nausea: No Vomiting: No Pain Intensity: 2 Hydration Status: adequate Cardiopulmonary Status: aat baseline Mental Status/LOC: patient returned to baseline Post-Anesthesia Complications: 0 Follow-up care needed: N/A - further care as per primary team Camelia Infante MD Jun 17, 2018 08:46
--- NOTE | 2018-06-17 10:33 | Diagnostic Imaging Report ---
INDICATION: Pain, intraoperative TECHNIQUE: Intraoperative imaging Fluoroscopy time: 29.7 seconds Total dose: 6 0.03628 mGym2 Total number of images: 3 COMPARISON: 06/13/2018 FINDINGS: Intraoperative imaging documents surgical repair of previously demonstrated distal fibular fracture with lateral sideplate and screws, surgical screws reducing previously demonstrated medial malleolar fracture, markedly improved anatomic alignment of both IMPRESSION: Intraoperative imaging, as described
--- NOTE | 2018-06-17 11:37 | Cardiology Progress Note ---
Assessment/Plan Assessment/Plan rolando fracture dm htn seems to be doing well echo normal lv fucntion ambulate as allowed cv stable bp elelvated toa dy on max dose of acei dc ivf may need addistional bp med if remains elelvated Subjective Cardiovascular: Denies: chest pain, lightheadedness, palpitations Respiratory: Denies: shortness of breath Gastrointestinal/Abdominal: Denies: abdominal pain Genitourinary: Denies: burning Objective Last 24 Hour Vital Signs Date Time Temp Pulse Resp B/P (MAP) Pulse Ox O2 Delivery O2 Flow Rate FiO2 06/17/18 09:19 Nasal Cannula 2.0 Nasal Cannula 2.0 06/17/18 09:04 97.4 06/17/18 08:34 155/92 06/17/18 08:00 97.4 59 18 155/92 (113) 95 06/17/18 07:02 97.4 06/17/18 04:00 97.4 69 18 109/73 (85) 97 06/17/18 00:00 97.4 62 18 122/74 (90) 95 06/16/18 22:30 Nasal Cannula 2.0 Nasal Cannula 2.0 06/16/18 22:05 98.0 55 20 115/74 94 Nasal Cannula 3 06/16/18 21:41 57 20 114/62 94 Nasal Cannula 3 06/16/18 21:34 55 20 113/75 94 Nasal Cannula 3 06/16/18 21:29 55 20 115/76 94 Nasal Cannula 3 06/16/18 21:24 98.0 57 20 116/71 94 Nasal Cannula 3 06/16/18 21:21 59 16 98 06/16/18 17:26 146/85 06/16/18 16:49 Room Air 06/16/18 16:30 98.3 60 18 146/85 (105) 95 06/16/18 12:00 98.1 61 18 153/84 (107) 94 General Appearance: no apparent distress, alert Neck: supple Cardiovascular: normal rate Respiratory/Chest: lungs clear Abdomen: normal bowel sounds, non tender, soft Extremities: no swelling Intake and Output 06/16/18 06/17/18 19:00 07:00 Intake Total 300 ml 1150 ml Output Total 625 ml Balance 300 ml 525 ml IV Total 300 ml 1150 ml Output Urine Total 600 ml Estimated Blood Loss 25 ml Vlad Neri MD Jun 17, 2018 11:37
[2018-06-17 12:00] VITALS: BP 116/74
[2018-06-17] MEDS: D5 1/2NS 1,000 ML IV SCH (15:19)
[2018-06-17 16:00] VITALS: BP 132/83
--- NOTE | 2018-06-17 17:32 | General Progress Note ---
Assessment/Plan Problem List: (1) DM (diabetes mellitus) Assessment & Plan: Blood sugar is better controlled ICD Codes: E11.9 - Type 2 diabetes mellitus without complications SNOMED: 96007953 (2) HTN (hypertension) Assessment & Plan: Blood pressure still slightly high ICD Codes: I10 - Essential (primary) hypertension SNOMED: 43580933 (3) Closed right ankle fracture ICD Codes: S82.891A - Other fracture of right lower leg, initial encounter for closed fracture SNOMED: 62442037 Assessment/Plan Continue lisinopril Increase Januvia PT per dr Juarez Discussed with family Watch blood sugar and blood pressure Subjective Allergies: Coded Allergies: No Known Allergies (Unverified , 06/13/18) Subjective In NAD Objective Last 24 Hour Vital Signs Date Time Temp Pulse Resp B/P (MAP) Pulse Ox O2 Delivery O2 Flow Rate FiO2 06/17/18 16:00 97.8 87 18 132/83 (99) 95 06/17/18 12:00 97.2 72 18 116/74 (88) 95 06/17/18 09:19 Nasal Cannula 2.0 Nasal Cannula 2.0 06/17/18 09:04 97.4 06/17/18 08:34 155/92 06/17/18 08:00 97.4 59 18 155/92 (113) 95 06/17/18 07:02 97.4 06/17/18 04:00 97.4 69 18 109/73 (85) 97 06/17/18 00:00 97.4 62 18 122/74 (90) 95 06/16/18 22:30 Nasal Cannula 2.0 Nasal Cannula 2.0 06/16/18 22:05 98.0 55 20 115/74 94 Nasal Cannula 3 06/16/18 21:41 57 20 114/62 94 Nasal Cannula 3 06/16/18 21:34 55 20 113/75 94 Nasal Cannula 3 06/16/18 21:29 55 20 115/76 94 Nasal Cannula 3 06/16/18 21:24 98.0 57 20 116/71 94 Nasal Cannula 3 06/16/18 21:21 59 16 98 Intake and Output 06/16/18 06/17/18 18:59 06:59 Intake Total 225 ml 1225 ml Output Total 625 ml Balance 225 ml 600 ml IV Total 225 ml 1225 ml Output Urine Total 600 ml Estimated Blood Loss 25 ml Height (Feet): 5 Height (Inches): 7.00 Weight (Pounds): 180 Cardiovascular: normal rate Respiratory/Chest: lungs clear Edema: no edema noted Generalized Adriano Rodrigez MD Jun 17, 2018 17:32
--- NOTE | 2018-06-17 19:32 | NUR ---
HAND-OFF: Report given to CARLYN Black.
--- NOTE | 2018-06-17 19:45 | NUR ---
NURSE NOTES: PATIENT IN BED. ON RA, NO SOB, NO ACUTE DISTRESS, NO C/O PAIN. OP DRESSING ON RLE INTACT, DRY. ELEVATED ON PILLOW. RFA 20G SALINE LOCK INTACT, PATENT. BED IN LOWEST POSITION, LOCKED, ALARMS ON. CALL LIGHT IN REACH.
[2018-06-17 20:00] VITALS: BP 111/60
[2018-06-18] VITALS: BP 110/64
[2018-06-18 04:00] VITALS: BP 131/69
[2018-06-18] MEDS: NovoLOG Insulin Flexpen SUBQ SCH ×3 (06:08→16:30)
[2018-06-18 06:59] LABS: BASOPHILS % (AUTO) 0.8 % (0.0-2.0); EOSINOPHILS % (AUTO) 2.6 % (0.0-3.0); HEMATOCRIT 36.5 % (42.0-52.0); HEMOGLOBIN 12.1 G/DL (14.2-18.0); LYMPHOCYTES % (AUTO) 19.5 % (20.0-45.0); MEAN CORPUSCULAR VOLUME 83 FL (80-99); MONOCYTES % (AUTO) 8.1 % (1.0-10.0); NEUTROPHILS % (AUTO) 68.9 % (45.0-75.0); PLATELET COUNT 178 K/UL (150-450); RED BLOOD COUNT 4.41 M/UL (4.70-6.10); RED CELL DISTRIBUTION WIDTH 13.3 % (11.6-14.8); WHITE BLOOD COUNT 5.4 K/UL (4.8-10.8)
[2018-06-18 07:06] LABS: ANION GAP 4 mmol/L (5-15); BLOOD UREA NITROGEN 17 mg/dL (7-18); CALCIUM 8.6 MG/DL (8.5-10.1); CARBON DIOXIDE 33 MMOL/L (21-32); CHLORIDE 102 MMOL/L (98-107); CREATININE 1.1 MG/DL (0.55-1.30); POTASSIUM 3.9 MMOL/L (3.5-5.1); SODIUM 138 MMOL/L (136-145)
--- NOTE | 2018-06-18 07:41 | NUR ---
HAND-OFF: Report given to David ALCOCER.
[2018-06-18 08:00] VITALS: BP 105/62
--- NOTE | 2018-06-18 08:00 | NUR ---
NURSE NOTES: Received report from Sofia ALCOCER, pt a/a/o x4 laying in bed with nos signs of distress or other issues at this time. surgical dressing dry and intact. IV on the right FA gauge#20 heplock. RN on a CCHO medium diet tolerating well with no n/v. call light within reach, bed anthony lowest position. side rales up x2. I will f/u as needed. plan: to d/c home today once PT clears pt.
[2018-06-18] MEDS: sitaGLIPtin 50mg tab ORAL SCH (09:38)
[2018-06-18] MEDS: Docusate 100mg cap ORAL SCH ×2 (09:38→13:21)
[2018-06-18] MEDS: Ciprofloxacin 500mg tab ORAL SCH (09:39)
[2018-06-18] MEDS: celeBREX 200mg Cap **SURGERY PATIENTS ONLY ORAL SCH (09:39)
[2018-06-18] MEDS: metFORMIN 500mg tab ORAL SCH (09:39)
[2018-06-18] MEDS: Heparin 5000 units/ml inj SUBQ SCH (09:40)
[2018-06-18] MEDS: Artificial Tears 1.4% Op Soln BOTH EYES SCH ×2 (09:40→13:22)
--- NOTE | 2018-06-18 10:30 | NUR ---
NURSE NOTES: Called Dr. Juarez, to confirm weight bearing status, since pt has 4 steps to get inside the house with no rales or assistance to get in. per Dr. Juarez ok for toe touch weight bearing. RN notified PT so they can train patient with crutches and FWW for home use. RN delivered FWW and crutches to patient room from central supply closet. plan to d/c home today.
--- NOTE | 2018-06-18 11:00 | NUR ---
DISCHARGE PLAN PATIENT HAS BEEN REFERRED TO [facility] T: [phone] F: [phone] Addendum: 06/18/18 at 1419 by BRITNEY LAURENT LVN LVN CORRECTED PHONE NUMBER DARSHANA T: [phone] EL PERALTA T: [phone]
--- NOTE | 2018-06-18 11:00 | NUR ---
NURSE NOTES: per MD order, RN removed Gordon cath, pt tolerated procedure well, RN will follow for post void.
[2018-06-18] MEDS: Lisinopril 20mg tab ORAL SCH (11:01)
[2018-06-18 12:00] VITALS: BP 109/71
--- NOTE | 2018-06-18 14:30 | General Progress Note ---
Assessment/Plan Problem List: (1) DM (diabetes mellitus) Assessment & Plan: Blood sugar is better controlled ICD Codes: E11.9 - Type 2 diabetes mellitus without complications SNOMED: 07756341 (2) HTN (hypertension) Assessment & Plan: Blood pressure still slightly high ICD Codes: I10 - Essential (primary) hypertension SNOMED: 65787252 (3) Closed right ankle fracture ICD Codes: S82.891A - Other fracture of right lower leg, initial encounter for closed fracture SNOMED: 03260984 Assessment/Plan cont as is DC home with home health Subjective Allergies: Coded Allergies: No Known Allergies (Unverified , 06/13/18) Subjective no vomiting today Objective Last 24 Hour Vital Signs Date Time Temp Pulse Resp B/P (MAP) Pulse Ox O2 Delivery O2 Flow Rate FiO2 06/18/18 11:01 105/62 06/18/18 11:01 83 105/62 06/18/18 08:00 98.1 83 20 105/62 (76) 98 06/18/18 04:00 97.9 80 18 131/69 (89) 95 06/18/18 00:00 97.3 72 18 110/64 (79) 95 06/17/18 21:00 Nasal Cannula 2.0 Nasal Cannula 2.0 06/17/18 20:00 98.4 78 18 111/60 (77) 94 06/17/18 17:26 132/83 06/17/18 16:00 97.8 87 18 132/83 (99) 95 Intake and Output 06/17/18 06/18/18 19:00 07:00 Intake Total 1480 ml Output Total 1600 ml Balance 1480 ml -1600 ml Intake Oral 1480 ml Output Urine Total 1600 ml Laboratory Tests 06/18/18 05:48: White Blood Count 5.4, Red Blood Count 4.41L, Hemoglobin 12.1L, Hematocrit 36.5L , Mean Corpuscular Volume 83, Mean Corpuscular Hemoglobin 27.5, Mean Corpuscular Hemoglobin Concent 33.2, Red Cell Distribution Width 13.3, Platelet Count 178, Mean Platelet Volume 7.1, Neutrophils (%) (Auto) 68.9, Lymphocytes (% ) (Auto) 19.5L, Monocytes (%) (Auto) 8.1, Eosinophils (%) (Auto) 2.6, Basophils (%) (Auto) 0.8, Sodium Level 138, Potassium Level 3.9, Chloride Level 102, Carbon Dioxide Level 33H, Anion Gap 4L, Blood Urea Nitrogen 17, Creatinine 1.1, Estimat Glomerular Filtration Rate > 60, Glucose Level 110H, Calcium Level 8.6 Height (Feet): 5 Height (Inches): 7.00 Weight (Pounds): 179 Cardiovascular: normal rate Respiratory/Chest: lungs clear Edema: no edema noted Generalized Adriano Rodrigez MD Jun 18, 2018 14:30
[2018-06-18] MEDS ORDERED: JANUVIA50 MG ORAL (14:35)
[2018-06-18] MEDS ORDERED: PRINIVIL20 MG ORAL (14:35)
[2018-06-18 16:00] VITALS: BP 112/75
--- NOTE | 2018-06-18 16:50 | NUR ---
NURSE NOTES: Received order to d/c pt. discharge instructions and belongings list given to patient and pt's family. pt stated that he will go to his regular pharmacy to fill out prescription. IV remove prior to d/c. pt left the floor via w/c with no signs of distress or other issues at this time. pt's will provide transportation. I will f/u as needed. - RN called multiple time to Dr. Rain Oh to confirm if pt will need abx. po. awaiting for response. Harry SHUKLA is aware.
[2018-06-19] MEDS ORDERED: D5 1/2NS 1000ml IV ONE (08:00)
[2018-06-19] MEDS ORDERED: Tubing IV Secondary IV ONE (08:00)
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
== END 2018-06-18 16:49 | disposition home or self-care (01) | DRG 494 ==
LOC: EDBD 08:55 → EMR 09:05 → 4E 10:53 → EDBEDREQ 11:35 → 3E 06-16 21:57
PROC: 0QSG34Z Reposition Right Tibia with Internal Fixation Device, Percutaneous Approach (ICD-10-PCS; principal; 2018-06-16 19:00)
PROC: 0HBMXZZ Excision of Right Foot Skin, External Approach (ICD-10-PCS; principal; 2018-06-16 19:00)
PROC: 0QSJ04Z Reposition Right Fibula with Internal Fixation Device, Open Approach (ICD-10-PCS; principal; 2018-06-16 19:00)
PROC: 0SSF0ZZ Reposition Right Ankle Joint, Open Approach (ICD-10-PCS; principal; 2018-06-16 19:00)
DX: S82.891A Other fracture of right lower leg, initial encounter for closed fracture (principal); S82.841A Displaced bimalleolar fracture of right lower leg, initial encounter for closed fracture; S93.04XA Dislocation of right ankle joint, initial encounter; S90.521A Blister (nonthermal), right ankle, initial encounter; M21.6X1 Other acquired deformities of right foot; V03.10XA Pedestrian on foot injured in collision with car, pick-up truck or van in traffic accident, initial encounter; Y92.414 Local residential or business street as the place of occurrence of the external cause; E11.9 Type 2 diabetes mellitus without complications; I10 Essential (primary) hypertension; E78.00 Pure hypercholesterolemia, unspecified
CPT/HCPCS: 29505; 36415; 71045; 76000; 80048; 80053; 80061; 82962; 83036; 85025; 85610; 85730; 90471; 90715; 93005; 93306; 99285; J1815; J2405

== ENCOUNTER 2018-08-11 11:12 | Outpatient (CLI) | payer MEDICARE ==
[~2018-08-11 11:12] MED LIST: ARTIFICIAL TEAR15 ML BOTH EYES; ATENOLOL50 MG ORAL; JANUVIA50 MG ORAL; LIPITOR10 MG ORAL; LISINOPRIL5 MG ORAL; METFORMIN HCL500 M1 ORAL; PRINIVIL20 MG ORAL; UNOBMED
[2018-08-11 12:08] LABS: BASOPHILS % (AUTO) 1.1 % (0.0-2.0); HEMATOCRIT 44.2 % (42.0-52.0); HEMOGLOBIN 14.5 G/DL (14.2-18.0); LYMPHOCYTES % (AUTO) 21.1 % (20.0-45.0); MEAN CORPUSCULAR VOLUME 84 FL (80-99); MONOCYTES % (AUTO) 7.6 % (1.0-10.0); NEUTROPHILS % (AUTO) 68.2 % (45.0-75.0); PLATELET COUNT 233 K/UL (150-450); RED BLOOD COUNT 5.27 M/UL (4.70-6.10)
[2018-08-11 12:39] LABS: ANION GAP 4 mmol/L (5-15); BLOOD UREA NITROGEN 15 mg/dL (7-18); CALCIUM 9.5 MG/DL (8.5-10.1); CARBON DIOXIDE 34 MMOL/L (21-32); CHLORIDE 101 MMOL/L (98-107); CHOLESTEROL 125 MG/DL (< 200); CREATININE 0.9 MG/DL (0.55-1.30); HDL CHOLESTEROL 31 MG/DL (40-60); POTASSIUM 4.8 MMOL/L (3.5-5.1); SODIUM 139 MMOL/L (136-145); TRIGLYCERIDES 123 MG/DL (30-150)
== END 2018-08-11 13:12 | disposition home or self-care (01) ==
LOC: LAB 11:12
DX: E11.9 Type 2 diabetes mellitus without complications (principal); I10 Essential (primary) hypertension
CPT/HCPCS: 36415; 80048; 80061; 83036; 85025